=== PATIENT | male | born 1950 ===

== ENCOUNTER → 2022-12-08 14:19 | Outpatient (ROUT) | payer MEDICARE, SELFPAY ==
[2022-12-08 14:49] LABS: Platelet Count 960 X10^3/uL (150-400)
== END ==
PROVIDERS: Visit Provider Internal Medicine
DX: Z47.89 Encounter for other orthopedic aftercare (principal)
CPT/HCPCS: 85049

== ENCOUNTER → 2022-12-17 16:28 | Outpatient (ROUT) | payer MEDICARE, SELFPAY | PROVIDERS: Visit Provider Nurse Practitioner Family | DX: R89.5 Abnormal microbiological findings in specimens from other organs, systems and tissues (principal) | CPT/HCPCS: 87070; 87075; 87077; 87186; 87205 ==

== ENCOUNTER → 2022-12-20 15:11 | Outpatient (CLI) | payer MEDICARE, SELFPAY ==
--- NOTE | 2022-12-20 | DI.RAD.S_ITS ---
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 COMPARISON: [facility], CR, XR FOOT LT MIN 3V, 12/20/2022, 15:25. FINDINGS: Bones: No acute fracture or dislocation. Periosteal reaction and cortical thinning is noted along the posterior aspect of the calcaneus. Soft tissues: No tibiotalar joint effusion. Achilles tendon appears normal. IMPRESSION: Periosteal reaction of the posterior calcaneus. Finding may be associated with subacute or chronic osteomyelitis. If further characterization is warranted, MRI with contrast could be used. Dictated by: Mariely Stout M.D. on 12/20/2022 at 17:54 Approved by: Mariely Stout M.D. on 12/20/2022 at 17:55
--- NOTE | 2022-12-20 15:26 | DI.RAD.S_ITS ---
PROCEDURE: XR FOOT LT MIN 3V INDICATIONS: PRESSURE ULCER HEEL MID FOOT TECHNIQUE: 3 views of the foot were acquired. COMPARISON: None. FINDINGS: Bones: No acute fracture or dislocation. Periosteal reaction is visualized along the posterior calcaneus. No other suspicious bony lesions none. Soft tissues: No tibiotalar joint effusion. Achilles tendon appears normal. IMPRESSION: Periosteal reaction along the distal calcaneus suspicious for subacute or chronic osteomyelitis. If further characterization is warranted, MRI of the foot could be used. Dictated by: Mariely Stout M.D. on 12/20/2022 at 17:55 Approved by: Mariely Stout M.D. on 12/20/2022 at 17:57
== END ==
PROVIDERS: Referring Provider Nurse Practitioner Family; Visit Provider Nurse Practitioner Family
DX: L97.429 Non-pressure chronic ulcer of left heel and midfoot with unspecified severity (principal)
CPT/HCPCS: 73610; 73630